=== PATIENT | female | born 1965 | race Caucasian/White ===

== ENCOUNTER 2016-10-25 18:40 | Observation (INO) ==
--- NOTE | 2016-10-25 18:57 | Emergency Department Note ---
Disposition Clinical Impression: Hyperglycemia Syncope Qualifiers: Syncope type: unspecified Qualified Code(s): R55 - Syncope and collapse Disposition: Admitted As Inpatient Referrals: Ramesh Graham DO [Primary Care Provider] - Forms: ED Satisfaction Letter Time of Disposition: 20:18 Syncope HPI - General Chief Complaint: ED Syncope Stated Complaint: syncopal episodes Time Seen by Provider: 10/25/16 18:51 Source: patient Mode of arrival: ambulatory Limitations: no limitations Nursing Notes Reviewed: Yes Vital Signs Reviewed: Yes - History of Present Illness HPI Narrative: 51-year-old with past medical history of coronary artery disease had bypass surgery states she's been having trouble with syncope. She is actually scheduled for a loop recorder by Dr. Sparks on the . She states that she cannot wait that long she is getting worse and she feels that that she is going to have a bad if she doesn't get it sooner to determine what is going on. 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 Duration: second(s) Prodromal Symptoms: none Witnessed: yes - by bystander Context: at rest Injuries Sustained Associated with Event: none History: previous syncopal episode - Related Data Home Medications Medication Instructions Recorded Confirmed Aspirin Enteric Coated [Aspirin EC] 325 mg PO DAILY 05/16/15 09/27/16 Gabapentin [Neurontin] 900 mg PO TID 05/16/15 09/27/16 Pantoprazole Sodium 40 mg PO DAILY 05/16/15 09/27/16 Ropinirole HCl [Requip] 3 mg PO BID 05/16/15 09/27/16 Tolterodine LA (24 HR) [Detrol LA] 4 mg PO DAILY 05/16/15 09/27/16 Famotidine [Pepcid] 20 mg PO QDPC PRN 02/28/16 09/27/16 Multivitamin [Multi-Day Vitamins] 1 tab PO DAILY 03/24/16 09/27/16 [place]-3/Dha/Epa/Fish Oil [Fish Oil 1,000 mg PO DAILY 03/24/16 09/27/16 1,000 mg Softgel] SUMAtriptan Succinate [Imitrex] 100 mg PO DAILY PRN 03/24/16 09/27/16 Sertraline [Zoloft] 100 mg PO DAILY 07/09/16 01/12/17 CarBAMazepine [Tegretol Xr] 1 tab PO DAILY 06/23/16 09/27/16 Previous Rx's Medication Instructions Recorded Albuterol Sulfate [Proair Hfa] 2 puff IH Q4H PRN #1 hfa.aer.ad 03/25/16 Atenolol 100 mg PO DAILY #30 tablet 03/25/16 CarBAMazepine [Tegretol] 200 mg PO BID #60 tablet 03/25/16 Clopidogrel [Plavix] 75 mg PO DAILY #30 tablet 03/25/16 Cyclobenzaprine [Flexeril] 10 mg PO TID PRN #0 tablet 03/25/16 Insulin ASPART [NovoLOG] 5 - 30 units SQ TIDWM #3 mls 03/25/16 Insulin DETEMIR [Levemir Flextouch] 50 unit SQ HS #3 mls 03/25/16 Isosorbide MONOnitrate (24 HR) 60 mg PO DAILY #30 tab.er.24h 03/25/16 [Imdur] LORazepam [Ativan] 1 mg PO TID PRN #0 tablet 03/25/16 Lancets/Blood Glucose Strips [Fora [facility] combo..pkg 03/25/16 [id number] Strp-Lnct] Lovastatin 40 mg PO HS #30 tablet 03/25/16 Syringe and Needle,Insulin,1Ml 1 each ACHS #100 disp.syrin 03/25/16 [Insulin Syringe] Nabumetone [Relafen] 500 mg PO BID PRN #20 tablet 06/23/16 Ciprofloxacin [Cipro] 500 mg PO BID #20 tablet 09/27/16 Clindamycin HCl [Cleocin HCl] 150 mg PO QID #40 capsule 09/27/16 Cephalexin [Keflex] 750 mg PO BID #20 capsule 09/30/16 Fluconazole [Diflucan] 150 mg PO DAILY #7 tab 09/30/16 HYDROcodone/Acet 5/325 mg [[place] 1 tab PO Q6H PRN #10 tab 09/30/16 5-325 mg] Allergies Allergy/AdvReac Type Severity Reaction Status Date / Time codeine Allergy See Verified 09/27/16 18:39 Comments ibuprofen Allergy See Verified 09/27/16 18:39 Comments meperidine Allergy See Verified 09/27/16 18:39 Comments promethazine Allergy Blister Verified 09/27/16 18:39 tramadol Allergy See Verified 09/27/16 18:39 Comments Constitutional: Denies: fever, chills, weakness, weight change Eyes: Denies: eye pain, eye discharge, vision change ENT ED: Denies: ear pain, throat pain, dental pain, hearing loss, epistaxis, congestion, dysphagia Cardiovascular: Reports: syncope. Denies: chest pain, palpitations, dyspnea on exertion, edema Respiratory: Denies: cough, dyspnea, wheezes, hemoptysis, stridor Gastrointestinal: Denies: abdominal pain, nausea, vomiting, diarrhea, constipation, hematemesis, melena, hematochezia Genitourinary: Denies: dysuria, frequency, hematuria, discharge Musculoskeletal: Denies: back pain, neck pain, arthralgia, myalgia Integumentary: Denies: rash, abrasion, lesions Neurological: Denies: headache, weakness, numbness, paresthesias, confusion, abnormal gait, vertigo Psychiatric: Denies: anxiety, depression, suicidal thoughts, homicidal thoughts , auditory hallucinations, visual hallucinations Endocrine: Denies: fatigue Hematological/Lymphatic: Denies: easy bleeding, easy bruising Allergic/Immunologic: Denies: facial swelling, urticaria Past Medical History - Past Medical History Medical history: Reports: COPD, coronary artery disease, CVA, diabetes, fibromyalgia, GERD, hyperlipidemia, hypertension, myocardial infarction, seizures Surgical history: Reports: angioplasty/stent, cholecystectomy, coronary bypass ( CABG), orthopedic, other (Left shoulder arthroscopy, left knee surgery) Psychiatric history: Reports: anxiety, bipolar, depression [employer] history: Reports: bilateral tubal ligation - Social History Smoking Status: Never smoker Smokeless Tobacco Status: No Alcohol use: Reports: rarely Drug use: Reports: none Physical Exam - General Limitations: no limitations General appearance: alert - Head Head exam: atraumatic, normocephalic, normal inspection - Eye Eye exam: Present: normal appearance, PERRL, EOMI - ENT ENT exam: normal exam, normal oropharynx, mucous membranes moist - Neck Neck exam: Present: normal inspection, full ROM, trachea midline - Chest Chest inspection: Present: normal inspection, symmetric chest wall rise - Respiratory Respiratory exam: Present: normal lung sounds bilaterally - Cardiovascular Cardiovascular exam: Present: regular rate, normal rhythm, normal heart sounds - Abdominal Exam Abdominal exam: Present: soft, Non-Tender. Absent: tenderness, distention, guarding, rebound, rigidity - Extremities Exam Extremities exam: Present: normal inspection, full ROM. Absent: tenderness, pedal edema - Expanded Lower Extremity Exam Neurovascular/Tendon exam: Absent: motor deficit, sensory deficit, tendon deficit Gait: observed and normal - Back Exam Back exam: Present: normal inspection, full ROM. Absent: tenderness - Neurological Exam Neurological exam: Present: alert, oriented X3 - Psychiatric Psychiatric exam: Present: normal affect, normal mood - Skin Skin exam: Present: warm, dry, intact, normal color Course - Reevaluation(s) Reevaluation #1: Blood pressure is 121/70. Time: 20:17 - Consultations Consultation #1: Discussed with Dr. Vicente, admit Time: 20:15 Vital Signs Temperature 97.6 F 10/25/16 18:43 Pulse Rate 106 10/25/16 18:43 Respiratory Rate 18 10/25/16 18:43 Blood Pressure 194/97 10/25/16 18:43 O2 Sat by Pulse Oximetry 96 10/25/16 18:43 Temperature 97.6 F 10/25/16 18:43 Pulse Rate 106 10/25/16 18:43 Respiratory Rate 18 10/25/16 18:43 Blood Pressure 194/97 10/25/16 18:43 O2 Sat by Pulse Oximetry 96 10/25/16 18:43 Oxygen Delivery Oxygen Delivery Room Air Syncope - Lab Data Result diagrams: 10/25/16 19:27 10/25/16 19:27 Lab Results 10/25/16 10/25/16 10/25/16 Range/Units 19:06 19:27 19:27 WBC 6.9 (4.3-11.1) K/mcL RBC 4.80 (3.82-4.97) M/mcL Hgb 13.6 (11.5-15.4) g/dL Hct 41.0 (35.3-44.9) % MCV 85.4 (83.0-100.0) fL MCH 28.3 (28.0-33.3) pg MCHC 33.2 (31.6-35.5) g/dL RDW 12.4 (11.5-14.5) % Plt Count 302 (140-400) K/mcL MPV 10.0 (9.4-12.4) fL Immature Gran % 0.6 (0-4) % Seg Neutrophils % 66.9 % Lymphocytes % 20.1 % Monocytes % 6.3 % Eosinophils % 5.5 % Basophils % 0.6 % Neutrophils # 4.6 (1.6-8.9) K/mcL Lymphocytes # 1.4 (0.6-4.6) K/mcL Monocytes # 0.4 (0.0-1.3) K/mcL Eosinophils # 0.4 (0.0-0.6) K/mcL Basophils # 0.0 (0.0-0.2) K/mcL PT 9.8 (9.4-12.1) Seconds INR 0.9 APTT 29.1 (26.0-36.0) Seconds Sodium (136-145) mEq/L Potassium (3.5-4.5) mEq/L Chloride (98-109) mEq/L Carbon Dioxide (19-29) mEq/L BUN (7-20) mg/dL Creatinine (0.57-1.11) mg/dL Est GFR ( Amer) (> 60) Est GFR (Non-Af Amer) (> 60) BUN/Creatinine Ratio (6-26) Glucose (70-99) mg/dL POC Glucose 526 H* (58-89) Calculated Osmolality (280-300) Calcium (8.6-10.8) mg/dL Troponin I (0-0.03) ng/mL Beta-Hydroxybutyric Acd (0.02-0.27) mmol/L 10/25/16 10/25/16 10/25/16 Range/Units 19:27 19:27 19:27 WBC (4.3-11.1) K/mcL RBC (3.82-4.97) M/mcL Hgb (11.5-15.4) g/dL Hct (35.3-44.9) % MCV (83.0-100.0) fL MCH (28.0-33.3) pg MCHC (31.6-35.5) g/dL RDW (11.5-14.5) % Plt Count (140-400) K/mcL MPV (9.4-12.4) fL Immature Gran % (0-4) % Seg Neutrophils % % Lymphocytes % % Monocytes % % Eosinophils % % Basophils % % Neutrophils # (1.6-8.9) K/mcL Lymphocytes # (0.6-4.6) K/mcL Monocytes # (0.0-1.3) K/mcL Eosinophils # (0.0-0.6) K/mcL Basophils # (0.0-0.2) K/mcL PT (9.4-12.1) Seconds INR APTT (26.0-36.0) Seconds Sodium 132 L (136-145) mEq/L Potassium 4.4 (3.5-4.5) mEq/L Chloride 95 L (98-109) mEq/L Carbon Dioxide 27 (19-29) mEq/L BUN 20 (7-20) mg/dL Creatinine 0.99 (0.57-1.11) mg/dL Est GFR ( Amer) > 60 (> 60) Est GFR (Non-Af Amer) 60 (> 60) BUN/Creatinine Ratio 20 (6-26) Glucose 596 H* (70-99) mg/dL POC Glucose (58-89) Calculated Osmolality 304 H (280-300) Calcium 8.9 (8.6-10.8) mg/dL Troponin I 0.00 (0-0.03) ng/mL Beta-Hydroxybutyric Acd 0.30 H (0.02-0.27) mmol/L - EKG Data EKG attestation: Yes I reviewed and interpreted this EKG. EKG shows normal: sinus rhythm Rate: normal Rhythm: NSR Interpretation: no acute changes
[2016-10-25 19:33] LABS: Basophils % 0.6 %; Eosinophils # 0.4 K/mcL (0.0-0.6); Eosinophils % 5.5 %; Hemoglobin 13.6 g/dL (11.5-15.4); Immature Granulocytes % 0.6 % (0-4); Lymphocytes # 1.4 K/mcL (0.6-4.6); Lymphocytes % 20.1 %; Mean Corpuscular HGB Conc 33.2 g/dL (31.6-35.5); Mean Corpuscular Hemoglobin 28.3 pg (28.0-33.3); Mean Corpuscular Volume 85.4 fL (83.0-100.0); Monocytes # 0.4 K/mcL (0.0-1.3); Monocytes % 6.3 %; Neutrophils # 4.6 K/mcL (1.6-8.9); Platelet Count 302 K/mcL (140-400); Red Cell Distribution Width 12.4 % (11.5-14.5); Segmented Neutrophils % 66.9 %
[2016-10-25 19:41] LABS: INR 0.9; Prothrombin Time 9.8 Seconds (9.4-12.1)
[2016-10-25 19:43] LABS: Activated Partial Thrombo Time 29.1 Seconds (26.0-36.0)
[2016-10-25 19:48] LABS: BUN/Creatinine Ratio 20 (6-26); Blood Urea Nitrogen 20 mg/dL (7-20); Calcium 8.9 mg/dL (8.6-10.8); Carbon Dioxide 27 mEq/L (19-29); Chloride 95 mEq/L (98-109); Osmolality,Calculated 304 (280-300); Potassium 4.4 mEq/L (3.5-4.5); Sodium 132 mEq/L (136-145); eGFR For African Americans > 60 (> 60); eGFR For Non-African Americans 60 (> 60)
[2016-10-25 19:52] LABS: Glucose 596 mg/dL (70-99)
[2016-10-25] MEDS ORDERED: Insulin Human Regular 8 UNIT in 0.9 % Sodium Chloride 10 ML IV ONE (19:52)
[2016-10-25] MEDS ORDERED: 0.9 % Sodium Chloride 1,000 ML IVC ONE (19:52)
[2016-10-25] MEDS ORDERED: Naloxone 0.4 MG/ML INJ IVP PRN (20:48)
[2016-10-25] MEDS ORDERED: Insulin LISPRO 300 UNITS/3 ML VIAL SQ SCH (21:00)
[2016-10-25] MEDS ORDERED: Dextrose Gel 15 GM PO PRN ×2 (21:02)
[2016-10-25] MEDS ORDERED: D5% in Water 1,000 ML IV PRN (21:02)
[2016-10-25] MEDS ORDERED: *HR* Dextrose 50 % in Water (Syg) 50 ML SYRINGE IVP PRN (21:02)
[2016-10-25] MEDS ORDERED: Insulin DETEMIR 100 UNIT/ML X5UNITS SQ SCH (21:15)
--- NOTE | 2016-10-25 21:21 | Internal Med History&Physical ---
Date of Encounter: 10/25/16 Time of Encounter: 21:11 Assessment and Plan (1) Syncope Current visit: Yes Status: Acute Patient is reporting increasing frequency of syncope. She is supposed to have a loop recorder later this month. She has had multiple visits to the ED and work up over the last year including neck MRA 03/24/16 which showed no evidence of focal stenosis of carotid or vertebral arteries, Head MRA 03/24/16 which showed no focal stenosis in [place]. She had echocardiogram 12/25/15 which showed EF of 60% and normal LV size and function, Stress test 12/25/15: Normal perfusion and no evidence of ischemia. 48 hour EEG 10/10/16 which showed no seizures or epileptiform discharges. Work up in the ED today included EKG which showed normal sinus rhythm, troponin was negative at 0.0. Head CT was negative for any acute abnormality, CXR showed no cardiopulmonary disease. Orthostatic vital signs continuous telemetry monitor Consult to cardiology - will need to be called tomorrow. Qualifiers: Syncope type: unspecified Qualified Code(s): R55 - Syncope and collapse (2) Hyperglycemia Current visit: Yes Status: Acute blood sugar of 596. Patient admits she does not take some of her medications because she cannot afford them, including her insulin sometimes. 8u insulin given in ED Will give evening dose of 50u levemir (basal dose) plus evening correction dose IV fluids: 0.9NS at 100mL/hr Check blood sugars ACHS Diabetic, heart health diet (3) History of seizure Current visit: Yes Status: Chronic Continue home dose of tegretol. Recent 48hr EEG showed no seizures or epileptiform discharges. (4) Type 1 diabetes mellitus Current visit: No Status: Chronic Diabetic, heart healthy diet Check blood sugars ACHS Basal levemir 50u HS Nutritional dose of 25u TIDWM Sliding scale correction dose HS hypoglycemic protocol Qualifiers: Diabetes mellitus complication status: with circulatory complication Diabetes mellitus complication detail: with other circulatory complications Qualified Code(s): E10.59 - Type 1 diabetes mellitus with other circulatory complications (5) DVT prophylaxis Current visit: No Status: Acute Ambulate with assistance anti-embolic stockings Heparin 5,000u SQ TID Internal Medicine - H&P: HPI Chief complaint: syncope Admitted From: Emergency Dept Plans for Post Hospital Care: Home History of present illness: Ms. Quevedo is a 51 year old female with HTN, hyperlipidemia, type 2 diabetes, CAD s/p stent placement and 4-vessel CABG (2015), seizure disorder who presented to the ED today with reports of fainting episodes. She reports the episode have been happening more frequently. She describes them as sudden loss of consciousness, without warning, and she's fallen multiple times because of them. She has had some workup for these episodes, without any conclusion and she reports a loop recorder is planned for later this month, but she does not feel she can wait that long. She also reports occasional chest pain and left arm numbness. She denies any palpitations, nausea, vomiting, diarrhea. She admits she cannot afford some of her medication and so does not take all of it, she is not sure which ones she does not take. She has had multiple visits to the ED and work up over the last year including neck MRA 03/24/16 which showed no evidence of focal stenosis of carotid or vertebral arteries, Head MRA 03/24/16 which showed no focal stenosis in [place]. She had echocardiogram 12/24 which showed EF of 60% and normal LV size and function, Stress test 12/25/15 : Normal perfusion and no evidence of ischemia. 48 hour EEG 10/10/16 which showed no seizures or epileptiform discharges. Work up in the ED today included EKG which showed normal sinus rhythm, troponin was negative at 0.0. Head CT was negative for any acute abnormality, CXR showed no cardiopulmonary disease. Her blood sugar was noted to be elevated at 596, she was given insulin and fluids. On exam, she is alert and oriented x 3, in no acute distress. Heart has regular rate and rhythm, lungs are clear to auscultation bilaterally. She has equal strength bilaterally and no pronator drift. Past Med Surg Social Fam HX - Past Medical History Medical history: COPD, coronary artery disease, diabetes, fibromyalgia, GERD, hyperlipidemia, hypertension, myocardial infarction, seizures Psychiatric history: anxiety, bipolar, depression - Past Surgical History Surgical History: angioplasty/stent, cholecystectomy, coronary bypass (CABG), orthopedic, other (Left shoulder arthroscopy, left knee surgery) - Social History Smoking Status: Never smoker Smokeless Tobacco Status: No Alcohol use: rarely Drug use: none - Family History Mother Hx Family Cardiac Disorders: Yes (HTN) Hx Family Endocrine Disorder: Yes (DM I) Hx Family Neurologic Disorders: Yes (stroke) Father Hx Family Cardiac Disorders: No Hx Family Cancer: Yes (Lung) Maternal Grandmother Hx Family Cardiac Disorders: Yes (Enlarged heart) Hx Family Respiratory Disorders: Yes (COPD) Hx Family Cancer: No Hx Family GI Disorders: No Hx Family Endocrine Disorder: Yes (DM) Hx Family Neuromuscular Disorders: No Hx Family Neurologic Disorders: No Hx Family HEENT Disorders: No Hx Family Autoimmune Disorders: No Internal Medicine - H&P: Meds Gabapentin [Neurontin] 900 mg PO TID 05/16/15 [History] Tolterodine LA (24 HR) [Detrol LA] 4 mg PO DAILY 05/16/15 [History] Sertraline [Zoloft] 100 mg PO BID 03/24/16 [History] Albuterol Sulfate [Proair Hfa] 2 puff IH Q4H PRN #1 hfa.aer.ad 03/25/16 [Rx] CarBAMazepine [Tegretol] 200 mg PO BID #60 tablet 03/25/16 [Rx] Clopidogrel [Plavix] 75 mg PO DAILY #30 tablet 03/25/16 [Rx] Insulin DETEMIR [Levemir Flextouch] 50 unit SQ HS #3 mls 03/25/16 [Rx] Isosorbide MONOnitrate (24 HR) [Imdur] 60 mg PO DAILY #30 tab.er.24h 03/25/16 [ Rx] Atenolol [Tenormin] 25 mg PO BID 10/25/16 [History] Insulin ASPART [NovoLOG] 25 units SQ TIDWM 10/25/16 [History] Mirtazapine [Mirtazapine] 15 mg PO HS 10/25/16 [History] Nitroglycerin [Nitrostat] 0.4 mg SL Q5M PRN 10/25/16 [History] Rizatriptan Benzoate [Rizatriptan] 10 mg PO DAILY PRN 10/25/16 [History] Allergies codeine Allergy (Verified 09/27/16 18:39) See Comments ibuprofen Allergy (Verified 09/27/16 18:39) See Comments meperidine Allergy (Verified 09/27/16 18:39) See Comments promethazine Allergy (Verified 09/27/16 18:39) Blister tramadol Allergy (Verified 09/27/16 18:39) See Comments All Systems PM: A 10-system review of systems was performed and is negative for pertinent findings except as documented above in the HPI. - Constitutional Constitutional: falls, no chills, no fever(s), no night sweats - EENT Eyes: no change in vision, no discharge, no pain, no photophobia Ears: no ear discharge, no ear pain, no tinnitus Nose, mouth and throat: no dysphagia, no nasal discharge, no neck pain, no sore throat - Cardiovascular Cardiovascular ROS IM: chest pain, dyspnea, syncope, no diaphoresis, no lightheadedness, no palpitations - Respiratory Respiratory: dyspnea, dyspnea on exertion, no cough, no wheezing, no excessive phlegm production - Gastrointestinal Gastrointestinal: no abdominal pain, no diarrhea, no hematemesis, no hematochezia, no melena, no nausea, no vomiting - Genitourinary Genitourinary: no change in urinary stream, no dysuria, no flank pain, no hematuria - Musculoskeletal Musculoskeletal ROS IM: tingling (occasional left arm), no numbness - Integumentary Integumentary IM: no rash, no unusual bruising - Neurological Neurological ROS: tingling (occasional left arm), no confusion, no convulsions, no focal weakness, no numbness, no tremor(s) - Hematologic/Lymphatic Hematologic/Lymphatic: no easy bruising - Constitutional Vitals: Temp Pulse Resp BP Pulse Ox 97.6 F 96 18 162/91 97 10/25/16 18:43 10/25/16 20:17 10/25/16 20:55 10/25/16 20:55 10/25/16 20:17 General appearance: Present: A&O X 3, no acute distress - Head Head exam: Present: atraumatic, normocephalic - Eye Eye exam: Present: PERRL, conjuntiva pink, sclera anicteric Pupils: Present: PERRL - Neck Neck exam general surgery: Present: supple, trachea midline. Absent: lymphadenopathy - Respiratory Respiratory exam: Present: CTAB. Absent: accessory muscle use, rales, rhonchi, wheezes - Cardiovascular Cardiovascular exam: Present: RRR, +S1, +S2. Absent: diastolic murmur, gallop, rubs, systolic murmur - GI/Abdominal GI/Abdominal exam: Present: normal bowel sounds, soft, no peritoneal signs. Absent: distended, tenderness - Extremities Exam Extremities exam: Present: warm, radial pulses palpable and symetrical. Absent : calf tenderness, cyanotic, pedal edema - Neurological Exam Neurological exam: Present: CN II-XII intact, oriented X3, no focal deficits. Absent: pronater drift, facial droop, speech deficit - Skin Skin exam: Present: dry, intact Internal Med - H&P Results - Labs CBC & Chem 7: 10/25/16 19:27 10/25/16 19:27
[2016-10-25] MEDS ORDERED: Nitroglycerin 0.4 MG TAB.SUBL SL PRN (21:41)
[2016-10-25] MEDS ORDERED: 0.9 % Sodium Chloride 500 ML IVC ONE (22:26)
[2016-10-25] MEDS ORDERED: 0.9 % Sodium Chloride 1,000 ML IVC SCH (22:30)
[2016-10-25] MEDS: carBAMazepine 200 MG TABLET PO SCH (22:44)
[2016-10-25] MEDS: *HR* Heparin 5,000 UNIT/ML VIAL SQ SCH (22:45)
[2016-10-25] MEDS: Gabapentin 300 MG CAPSULE PO SCH (22:45)
[2016-10-25] MEDS ORDERED: Mirtazapine 15 MG TABLET PO SCH (23:10)
[2016-10-26 01:20] LABS: Basophils % 0.6 %; Eosinophils # 0.5 K/mcL (0.0-0.6); Eosinophils % 7.2 %; Hematocrit 37.1 % (35.3-44.9); Hemoglobin 12.3 g/dL (11.5-15.4); Immature Granulocytes % 0.4 % (0-4); Lymphocytes % 27.1 %; Mean Corpuscular HGB Conc 33.2 g/dL (31.6-35.5); Mean Corpuscular Hemoglobin 28.3 pg (28.0-33.3); Mean Corpuscular Volume 85.5 fL (83.0-100.0); Mean Platelet Volume 9.9 fL (9.4-12.4); Monocytes # 0.6 K/mcL (0.0-1.3); Monocytes % 8.7 %; Neutrophils # 4.1 K/mcL (1.6-8.9); Platelet Count 301 K/mcL (140-400); Red Blood Count 4.34 M/mcL (3.82-4.97); Red Cell Distribution Width 12.5 % (11.5-14.5)
[2016-10-26 01:31] LABS: BUN/Creatinine Ratio 29 (6-26); Blood Urea Nitrogen 20 mg/dL (7-20); Calcium 8.1 mg/dL (8.6-10.8); Carbon Dioxide 26 mEq/L (19-29); Chloride 102 mEq/L (98-109); Glucose 305 mg/dL (70-99); Osmolality,Calculated 296 (280-300); Potassium 3.9 mEq/L (3.5-4.5); Sodium 136 mEq/L (136-145); eGFR For African Americans > 60 (> 60); eGFR For Non-African Americans > 60 (> 60)
--- NOTE | 2016-10-26 01:45 | Event Note ---
Date of Encounter: 10/26/16 Time of Encounter: 01:41 Patient seen and examined with nurse practitioner. Patient with a history of cabg has been having episodes of syncope over the past 2 months. These have been extensively investigated. She is scheduled to have a loop recorder by cardiology service. To dish out an episode of syncope. She was investigated before by 48-hour continuous EEG monitoring, holter monitors, brain imaging etc. and these were unrevealing. What admitted the patient for continuously telemetry monitoring and cardiology consultation. Patient also has hyperglycemic hyperosmolar states. Occasional noncompliance with insulin. Will hydrate the patient and resume her insulin. She is for full code
[2016-10-26] MEDS: *HR* Heparin 5,000 UNIT/ML VIAL SQ SCH (06:37)
[2016-10-26] MEDS ORDERED: Insulin LISPRO 300 UNITS/3 ML VIAL SQ SCH ×3 (07:30→08:00)
--- NOTE | 2016-10-26 08:58 | Cardiology Consult Note ---
<Olegario Juarez - Last Filed: 10/26/16 09:16> Date of Encounter: 10/26/16 Time of Encounter: 08:46 Assessment and Plan (1) Syncope Current Visit: Yes Status: Acute - reports of increased frequency of syncopal episode, negative workup to date, this may likely be due to intravascularly depletion in setting of HHS - ECHO 12/25/15 - EF 60% and normal LV size and function with normal wall motion - Nuclear stress test 12/25/15 - negativev for ischemia or infarct - Holter 09/30/15 - baseline rhythm is normal sinus with rare PAC/PVCs, no arrhythmias or pauses - 48 hour EEG 10/10/16 did not show seizures or epileptiform discharges - MRA head/neck 03/24/16 without acute abnormalities to arteries or [place] - scheduled loop recorder as outpatient with Dr. Alexy Sparks 11/06/16 however he is out until Saturday - will try to reschedule for earlier loop recorder, patient is in agreement with plan - continue quality assurance monitor final and paln for outpatient followup - EKG is NSR without acute ischemic changes, no LVH, brugada pattern, conduction delay, or delta wave - troponin negative - CT head normal Cardiology will sign off. Thank you for involving us in her care. Please call with further questions. Qualifiers: Syncope type: unspecified Qualified Code(s): R55 - Syncope and collapse (2) CAD (coronary artery disease) Current Visit: No Status: Acute - history of CAD with CABG 4V in 2014 - continue home meds ASA/plavix Qualifiers: Coronary Disease-Associated Artery/Lesion type: unspecified vessel or lesion type [place] vs. transplanted heart: [place] heart Associated angina: angina presence unspecified Qualified Code(s): I25.10 - Atherosclerotic heart disease of [place] coronary artery without angina pectoris (3) Hyperglycemia Current Visit: Yes Status: Acute - initial blood sugar of 596 - serum ketone 0.30 - primary team to manage Discussion w patient/family: The assessment and plan as outlined above was discussed with the patient and/or family members who expressed understanding and agreement. All questions were answered. Thank you for involving us in the care of your patient. Please call with any questions. History of Present Illness Consult date: 10/26/16 Requesting physician: Chiara Blanchard Consult reason: Syncope Chief complaint: Syncope, HHS History of present illness: Ms. Quevedo is a 51 year old female with past medical history of CAD s/p stent and CABG 4V (2014), hypertension, hyperlipidemia, IDDM, seizure disorder presented to the ED with reports of increased frequency of syncopal episodes. Reports last night at 1900 she was cooking dinner when she all of a sudden passed out. She is unsure how long. Reports symptoms of increased heart rate prior to the episode. Denies any injuries. Denies other prodromal symptoms including shortness of breath, lightheadedness, headache, chest pain. All of this in the setting of HHS. Her blood sugars up to 596 in the ED. She reports drinking a lot of juice at home but has not been taking care of herself due to increased stresses at home including recent in family. Reports up to 2-3 episodes daily. History of extensive workup with Dr. Sparks including a normal holter, stress, and echocardiogram. Scheduled for loop recorder 11/06. Also normal MRA head/neck and 24 hour EEG. Important CV studies: - ECHO 12/25/15 - EF 60% and normal LV size and function with normal wall motion - Nuclear stress test 12/25/15 - negativev for ischemia or infarct - Holter 09/30/15 - baseline rhythm is normal sinus with rare PAC/PVCs, no arrhythmias or pauses Past Med Surg Social Fam HX - Past Medical History Medical history: COPD, coronary artery disease, diabetes, fibromyalgia, GERD, hyperlipidemia, hypertension, myocardial infarction, seizures Psychiatric history: anxiety, bipolar, depression - Past Surgical History Surgical History: angioplasty/stent, cholecystectomy, coronary bypass (CABG), orthopedic, other - Social History Smoking Status: Never smoker Smokeless Tobacco Status: No Alcohol use: rarely Drug use: none - Family History Mother Hx Family Cardiac Disorders: Yes (HTN) Hx Family Endocrine Disorder: Yes (DM I) Hx Family Neurologic Disorders: Yes (stroke) Father Hx Family Cardiac Disorders: No Hx Family Cancer: Yes (Lung) Maternal Grandmother Hx Family Cardiac Disorders: Yes (Enlarged heart) Hx Family Respiratory Disorders: Yes (COPD) Hx Family Cancer: No Hx Family GI Disorders: No Hx Family Endocrine Disorder: Yes (DM) Hx Family Neuromuscular Disorders: No Hx Family Neurologic Disorders: No Hx Family HEENT Disorders: No Hx Family Autoimmune Disorders: No Medications and Allergies Gabapentin [Neurontin] 900 mg PO TID 05/16/15 [History] Tolterodine LA (24 HR) [Detrol LA] 4 mg PO DAILY 05/16/15 [History] Sertraline [Zoloft] 100 mg PO BID 03/24/16 [History] Albuterol Sulfate [Proair Hfa] 2 puff IH Q4H PRN #1 hfa.aer.ad 03/25/16 [Rx] CarBAMazepine [Tegretol] 200 mg PO BID #60 tablet 03/25/16 [Rx] Clopidogrel [Plavix] 75 mg PO DAILY #30 tablet 03/25/16 [Rx] Insulin DETEMIR [Levemir Flextouch] 50 unit SQ HS #3 mls 03/25/16 [Rx] Isosorbide MONOnitrate (24 HR) [Imdur] 60 mg PO DAILY #30 tab.er.24h 03/25/16 [ Rx] Atenolol [Tenormin] 25 mg PO BID 10/25/16 [History] Insulin ASPART [NovoLOG] 25 units SQ TIDWM 10/25/16 [History] Mirtazapine [Mirtazapine] 15 mg PO HS 10/25/16 [History] Nitroglycerin [Nitrostat] 0.4 mg SL Q5M PRN 10/25/16 [History] Rizatriptan Benzoate [Rizatriptan] 10 mg PO DAILY PRN 10/25/16 [History] Allergies codeine Allergy (Verified 09/27/16 18:39) See Comments ibuprofen Allergy (Verified 09/27/16 18:39) See Comments meperidine Allergy (Verified 09/27/16 18:39) See Comments promethazine Allergy (Verified 09/27/16 18:39) Blister tramadol Allergy (Verified 09/27/16 18:39) See Comments All Systems Review: A 10-system review of systems was performed and is negative for pertinent findings except as documented above in the HPI. - Constitutional Constitutional: no headache(s) - Cardiovascular Cardiovascular: dyspnea on exertion, rapid heart rate, syncope, no chest pain at rest, no chest pain with exertion, no dyspnea at rest, no irregular heart rhythm - Respiratory Respiratory: dyspnea, no cough Physical Examination Vital Signs, Last 4 Hours Temp Pulse Pulse Pulse Pulse Resp BP 10/26/16 07:18 79 80 82 10/26/16 07:06 97.7 F 79 15 103/68 BP BP BP Pulse Ox 10/26/16 07:18 103/68 117/77 122/79 10/26/16 07:06 95 General: Conversant, No Apparent Distress HEENT: Atraumatic, Normocephaly, Other (mucous membranes tacky) Neck: No JVD, Normal carotid pulses Cardiac: Reg Rate and Rhythm, Normal S1 and S2, No Murmur (with/without valsalva ) Lungs: Normal Breath Sounds, No Wheeze, Rales, Rhonchi Neuro: Alert and responsive, No focal deficits noted Abdomen: Soft, Non-Tender Skin: No rashes noted on visualized skin Musculoskeletal: No Chest Wall Tenderness, Other (scar from previous bypass) Extremities: No Clubbing, No Cyanosis, No Edema, Normal Pulses Results 10/26/16 00:51 10/26/16 00:51 Lab Results 10/26/16 10/26/16 10/26/16 00:51 00:51 00:51 WBC 7.3 Hgb 12.3 Hct 37.1 Plt Count 301 Sodium 136 Potassium 3.9 Chloride 102 Carbon Dioxide 26 BUN 20 Creatinine 0.69 Glucose 305 H Calcium 8.1 L Troponin I 0.00 10/26/16 07:51 WBC Hgb Hct Plt Count Sodium Potassium Chloride Carbon Dioxide BUN Creatinine Glucose Calcium Troponin I 0.00 - Imaging and Cardiology Chest Xray: report reviewed, image reviewed Stress Test: report reviewed Echo: report reviewed Holter: report reviewed - EKG Interpretation EKG results cardiology: personally reviewed, normal ECG, sinus rhythm, no diagnostic ischemia Consult Discharge Plan - Plan Referrals: Jasmyne Cochran, JOSE [Primary Care Provider] - 11/01/16 10:00 am <Dustin Caldwell - Last Filed: 10/26/16 09:40> Date of Encounter: 10/26/16 Assessment and Plan (1) Syncope Current Visit: Yes Status: Acute - reports of increased frequency of syncopal episode, negative workup to date, this may likely be due to intravascularly depletion in setting of HHS - ECHO 12/25/15 - EF 60% and normal LV size and function with normal wall motion - Nuclear stress test 12/25/15 - negativev for ischemia or infarct - Holter 09/30/15 - baseline rhythm is normal sinus with rare PAC/PVCs, no arrhythmias or pauses - 48 hour EEG 10/10/16 did not show seizures or epileptiform discharges - MRA head/neck 03/24/16 without acute abnormalities to arteries or [place] - scheduled loop recorder as outpatient with Dr. Alexy Sparks 11/06/16 however he is out until Saturday - will try to reschedule for earlier loop recorder, patient is in agreement with plan - continue quality assurance monitor final and paln for outpatient followup - EKG is NSR without acute ischemic changes, no LVH, brugada pattern, conduction delay, or delta wave - troponin negative - CT head normal Cardiology will sign off. Thank you for involving us in her care. Please call with further questions. Qualifiers: Syncope type: unspecified Qualified Code(s): R55 - Syncope and collapse Discussion w patient/family: The assessment and plan as outlined above was discussed with the patient and/or family members who expressed understanding and agreement. All questions were answered. Thank you for involving us in the care of your patient. Please call with any questions. History of Present Illness History of present illness: Ms. Quevedo is a 51 year old female All Systems Review: A 10-system review of systems was performed and is negative for pertinent findings except as documented above in the HPI. Physical Examination Vital Signs, Last 4 Hours Temp Pulse Pulse Pulse Pulse Resp BP 10/26/16 07:18 79 80 82 10/26/16 07:06 97.7 F 79 15 103/68 BP BP BP Pulse Ox 10/26/16 07:18 103/68 117/77 122/79 10/26/16 07:06 95 Results 10/26/16 00:51 10/26/16 00:51 Lab Results 10/26/16 10/26/16 10/26/16 00:51 00:51 00:51 WBC 7.3 Hgb 12.3 Hct 37.1 Plt Count 301 Sodium 136 Potassium 3.9 Chloride 102 Carbon Dioxide 26 BUN 20 Creatinine 0.69 Glucose 305 H Calcium 8.1 L Troponin I 0.00 10/26/16 07:51 WBC Hgb Hct Plt Count Sodium Potassium Chloride Carbon Dioxide BUN Creatinine Glucose Calcium Troponin I 0.00 Attestation: My signature below is to certify that this patient is under my care and that I, resident physician or nurse practitioner, or a physician's sourcing assistant working with me, has a [id number] encounter with this patient. Recurrent syncope with fairly extensive CV assessment not yet revealing a CV source of syncopal spells. History of syncope during most recent event - equivocal - but occurred in the setting of severe hyperglycemia and associated metabolic changes. Recs: Maintain on Tele while here Correct other issues - defer to Hospitalist. Implantable loop recorder has been scheduled - implanting physician not available today or this weekend. Will try to move procedure up - but will keep scheduled as outpt. Home when OK with others.
[2016-10-26] MEDS ORDERED: Isosorbide MONOnitrate (24 HR) 60 MG TAB.ER.24H PO SCH (09:00)
[2016-10-26] MEDS ORDERED: Tolterodine LA (24 HR) 4 MG CAP.ER.24H PO SCH (09:00)
[2016-10-26] MEDS: carBAMazepine 200 MG TABLET PO SCH (09:46)
[2016-10-26] MEDS: Gabapentin 300 MG CAPSULE PO SCH (09:47)
--- NOTE | 2016-10-26 10:51 | Discharge Summary ---
Date of Encounter: 10/26/16 Time of Encounter: 08:45 - Discharge Diagnosis (1) Syncope Priority: Primary Status: Chronic Comments: In speaking with the patient and in review of her chart, there is no further workup that can be offered from an inpatient perspective. In speaking with the patient, it is unclear whether these are true syncopal episodes. Patient stating she has 2-3 of these episodes per day. She states that she has never had incontinence, never suffered any injuries, never bit her tongue despite allegedly passing out 2-3 times a day every day. She states that her fiance lives with her and he is present most of the time but he has to leave for 2-3 hours every morning at which time family and friends come over. Patient stating that she needs to have somebody with her at all times. She states she does not like to be left alone. This is likely consistent with secondary gain. In the patient's description of her alleged syncopal episodes and in her alleged seizures, she is fully aware of her surroundings during the episodes and they are not consistent with syncopal episodes or seizure-like activity. Workup here negative other than uncontrolled diabetes. She will follow up with cardiology early next week for possible loop recorder. Patient stating she is scheduled to have this placed on the but does not want to wait until then. Qualifiers: Syncope type: unspecified Qualified Code(s): R55 - Syncope and collapse (2) History of seizure Priority: Secondary Status: Chronic Comments: See prior note for syncope (3) Personality disorder Priority: Primary Status: Suspected Comments: Suspected, recommend outpatient psychiatry evaluation (4) Diabetes mellitus Priority: Secondary Status: Chronic Comments: Uncontrolled and noncompliant. Most recent A1c 13.3%, recommend continued follow up outpatient. Patient not receptive to teaching. (5) DVT prophylaxis Priority: Primary Status: Acute Comments: Subcutaneous heparin while admitted (6) Major depressive disorder, recurrent severe without psychotic features Priority: Secondary Status: Chronic Comments: Patient denied any suicidal or homicidal ideations. She did continually states she does not ever want to be left home alone (7) Anxiety Priority: Secondary Status: Chronic (8) CAD (coronary artery disease) Priority: Secondary Status: Chronic Comments: Patient denied chest pain or shortness of breath above her normal throughout this admission, follow-up outpatient closely with cardiology early next week for possible loop recorder Qualifiers: Coronary Disease-Associated Artery/Lesion type: bypass graft [place] vs. transplanted heart: [place] heart Associated angina: without angina Qualified Code(s): I25.810 - Atherosclerosis of coronary artery bypass graft(s) without angina pectoris (9) HTN (hypertension) Priority: Secondary Status: Chronic Comments: Controlled, follow-up outpatient Qualifiers: Hypertension type: essential hypertension Qualified Code(s): I10 - Essential (primary) hypertension (10) Non compliance w medication regimen Priority: Secondary Status: Chronic (11) Morbid obesity with BMI of 40.0-44.9, adult Priority: Secondary Status: Chronic - Discharge Medications Home Medications: Gabapentin [Neurontin] 900 mg PO TID 05/16/15 [History] Tolterodine LA (24 HR) [Detrol LA] 4 mg PO DAILY 05/16/15 [History] Sertraline [Zoloft] 100 mg PO BID 03/24/16 [History] Albuterol Sulfate [Proair Hfa] 2 puff IH Q4H PRN #1 hfa.aer.ad 03/25/16 [Rx] CarBAMazepine [Tegretol] 200 mg PO BID #60 tablet 03/25/16 [Rx] Clopidogrel [Plavix] 75 mg PO DAILY #30 tablet 03/25/16 [Rx] Insulin DETEMIR [Levemir Flextouch] 50 unit SQ HS #3 mls 03/25/16 [Rx] Isosorbide MONOnitrate (24 HR) [Imdur] 60 mg PO DAILY #30 tab.er.24h 03/25/16 [ Rx] Atenolol [Tenormin] 25 mg PO BID 10/25/16 [History] Insulin ASPART [NovoLOG] 25 units SQ TIDWM 10/25/16 [History] Mirtazapine 15 mg PO HS 10/25/16 [History] Nitroglycerin [Nitrostat] 0.4 mg SL Q5M PRN 10/25/16 [History] Rizatriptan Benzoate [Rizatriptan] 10 mg PO DAILY PRN 10/25/16 [History] Allergies/Adverse Reactions: Allergies codeine Allergy (Verified 09/27/16 18:39) See Comments ibuprofen Allergy (Verified 09/27/16 18:39) See Comments meperidine Allergy (Verified 09/27/16 18:39) See Comments promethazine Allergy (Verified 09/27/16 18:39) Blister tramadol Allergy (Verified 09/27/16 18:39) See Comments Date of admission: 10/25/16 20:38 Primary care physician: Jasmyne Cochran CNP Consults: 10/25/16 21:08 Consult to Cardiology [CONS] Routine Comment: Consulting Provider: Card[facility] [place] Reason for Consult: 51 yo with increasing syncopal episodes, history of CAD, CABG 2015, seizure disorder. Has already had some work up, Loop recorder was planned for later this month. Call Completed: Yes Discharging clinician: Mayda Ramirez Anticipated date of discharge: 10/26/16 (followup early next week with cardiology) - Patient Status Disposition: Home, Self-Care Condition: Fair Functional capacity at discharge: independent ambulation Overall status at discharge: patient is back to baseline - Discharge Instructions Follow Up With: Jasmyne Cochran CNP [Primary Care Provider] - 11/01/16 10:00 am Alexy Sparks MD [Partnered Physician] - Additional Instructions: Follow-up with primary care provider as scheduled, follow-up with cardiology early next week - Diet and Activity Activity: increase activity as tolerated Diet: diabetic diet, low fat, low cholesterol, low salt diet Hospital course: Ms. Quevedo is a 51 year old female with extensive past medical history including hypertension, hyperlipidemia, uncontrolled type 2 diabetes, CAD status post stent and CABG 4, seizure disorder, morbid obesity, noncompliance. Patient presented to the emergency department chief complaint of syncope. Patient states that she has sudden loss of consciousness without warning and is associated with multiple falls as a result of these loss of consciousness episodes. Patient has had several extensive workups for these episodes without any conclusive etiology is noted. The only workup yet to be performed is a loop recorder per cardiology that is planned for later this month however the patient stated she did not feel as if she could wait that long which prompted her presentation to the emergency department. Patient also endorsed intermittent chest pain and left arm numbness. She denied palpitations, nausea , vomiting, diarrhea. Patient stating she cannot afford some of her medications and does not routinely take all of her medications but she is unable to answer which medication she does not does not take. She has a lengthy history of noncompliance. She has presented to the emergency department several times for the same complaint. On 03/24/16, she had a head and neck MRI that were negative for acute processes. She had an echocardiogram on which revealed an ejection fraction of 60% and was otherwise unremarkable. She also had a negative stress test on 12/25/15. She had an unremarkable 48 hour EEG on 10/10/16 which showed no seizures or epileptiform discharges. Workup in the emergency department unremarkable other than an initial glucose of 596. EKG with normal sinus rhythm and troponin negative. Head CT negative. Chest x-ray negative. She was admitted to the hospitalist service for further evaluation and management. Cardiology was brought on board but as Dr. Sparks is not available until early next week, they cleared her for outpatient follow-up with the notion that there are no further diagnostic testing that would be warranted from an inpatient basis. In speaking with the patient and in review of her chart, there is no further workup that can be offered from an inpatient perspective. In speaking with the patient, it is unclear whether these are true syncopal episodes. Patient stating she has 2-3 of these episodes of syncope per day. She states that she has never had incontinence, never suffered any injuries, never bit her tongue despite allegedly passing out 2-3 times a day every day. She states that her fiance lives with her and he is present most of the time but he has to leave for 2-3 hours every morning at which time family and friends come over. Patient stating that she needs to have somebody with her at all times. She states she does not like to be left alone. This is likely consistent with secondary gain. In the patient's description of her alleged syncopal episodes and in her alleged seizures, she is fully aware of her surroundings during the episodes and they are not consistent with syncopal episodes or seizure-like activity. Workup here negative other than uncontrolled diabetes. She will follow up with cardiology early next week for possible loop recorder. Patient stating she is scheduled to have this placed on the but does not want to wait until then. Patient states that she has several family members and friends that live close by that are constantly checking on her. She states that they do not let her cook or clean her house because they are afraid that she will have another episode. In this, patient is constantly surrounded by family and friends 24 hours a day 7 days a week who appeared to wait on her hand and foot. Strong suspicion for secondary gain however further workup to be continued on an outpatient basis. She was discharged home in stable condition with close outpatient follow-up recommended. Of note, she remained asymptomatic throughout this admission without any seizure-like activity or syncopal episodes. She denied lightheadedness or dizziness. She tolerated a regular diet. ITS Impressions Chest X-Ray 10/25/16 18:51 IMPRESSION: No active cardiopulmonary disease D/ / Mitchel Huston MD / Mitchel Huston MD Interpreting Provider: Mitchel Huston MD Head CT 10/25/16 18:52 IMPRESSION: No acute intracranial abnormality. D/ / Mahesh Dias MD / Mahesh Dias MD Interpreting Provider: Mahesh Dias MD - Time Spent with Patient Total time spent providing and/or coordinating discharge services: - Constitutional Vitals: Temp Pulse Resp BP Pulse Ox 97.7 F 79 15 103/68 95 10/26/16 07:06 10/26/16 07:18 10/26/16 07:06 10/26/16 07:18 10/26/16 07:06 General appearance: Present: A&O X 3, morbidly obese, pleasant, no acute distress, answers questions appropriately - Head Head exam: Present: atraumatic, normocephalic - Eye Eye exam: Present: PERRL, conjuntiva pink, sclera anicteric Pupils: Present: PERRL - Neck Neck exam general surgery: Present: supple, trachea midline. Absent: lymphadenopathy - Respiratory Respiratory exam: Present: CTAB. Absent: accessory muscle use, rales, respiratory distress, rhonchi, wheezes - Cardiovascular Cardiovascular exam: Present: RRR, +S1, +S2. Absent: diastolic murmur, gallop, rubs, systolic murmur - GI/Abdominal GI/Abdominal exam: Present: normal bowel sounds, soft, no peritoneal signs. Absent: distended, tenderness - Extremities Exam Extremities exam: Present: warm, radial pulses palpable and symetrical. Absent : calf tenderness, cyanotic, pedal edema - Neurological Exam Neurological exam: Present: alert, CN II-XII intact, oriented X3, no focal deficits, strengths equal and symetr throughout. Absent: pronater drift, facial droop, speech deficit - Skin Skin exam: Present: dry, intact, normal color, warm
[2016-10-26 11:17] VITALS: BP 106/67
--- NOTE | 2016-10-26 16:50 | Electrocardiograph Report ---
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
[2016-10-26] MEDS ORDERED: Mirtazapine 15 MG TABLET PO SCH (21:00)
== END 2016-10-26 11:45 | disposition home or self-care (01) ==
LOC: 3BNU 18:40 → EMEROO 18:40 → 3BNU 20:55
PROVIDERS: ADMIT Hospitalist; ATTEND Nurse Practitioner Family

== ENCOUNTER 2017-02-15 20:41 | Observation (INO) ==
[2017-02-15] MEDS ORDERED: NON-FORMULARY MEDICATION 1 EACH EACH (Insulin Detemir [Levemir Flextouch] 50 UNIT) SQ SCH (23:45)
--- NOTE | 2017-02-15 23:51 | Internal Med History&Physical ---
Date of Encounter: 02/15/17 Time of Encounter: 23:50 Assessment and Plan (1) Chest pain, rule out acute myocardial infarction Current visit: Yes Status: Acute Patient's chest pain is atypical. However patient has multiple risk factors including prior WA/CABG, DM. We will monitor her on telemetry and trend troponins. Patient was recently admitted to [facility] in November 2016. I have requested for the records. If there was no stress test or cardiac catheterization during that period, we will proceed with a stress test here during this admission. (2) CAD (coronary artery disease) Current visit: Yes Status: Chronic Continue current home medications. Qualifiers: Coronary Disease-Associated Artery/Lesion type: [place] artery [place] vs. transplanted heart: [place] heart Associated angina: angina presence unspecified Qualified Code(s): I25.10 - Atherosclerotic heart disease of [place] coronary artery without angina pectoris (3) Seizure disorder Current visit: Yes Status: Chronic Seizure precautions, continue her home medications including carbamazepine and gabapentin (4) Diabetes mellitus Current visit: Yes Status: Chronic Her A1C was about 13% last year. Will recheck A1C. continue levemir. 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 Will request medical records from [facility] for recent echocardiogram - if not available, will obtain one during this admission. Qualifiers: Congestive heart failure type: unspecified congestive heart failure type Congestive heart failure chronicity: unspecified congestive heart failure chronicity Qualified Code(s): I50.9 - Heart failure, unspecified Internal Medicine - H&P: HPI Chief complaint: chest pain Admitted From: Emergency Dept Plans for Post Hospital Care: Home History of present illness: Ms. Quevedo is a 51 year old female With h/o DM on insulin, CAD s/p coronary stems and CABG, COPD, hypertension, hyperlipidemia, seizure disorder, CVA with speech and memory problems. She had chest pain with troponin of 0.14 on 2016 and was transferred to [facility], from [facility] ( records requested from [facility]). Pt reports that she had an episode of seizure when she was sitting in the car (passenger seat) and noticed pain all over after the episode. She developed some left-sided chest pain for about 2 days, which preceded her seizure. She reports dull, constant pain, non- radiating. She was given nitroglycerin in the emergency department and her pain came down to 6/10, from 8/10. She was given Nitropaste which did not improve her chest pain. She report pain in the LUQ of the abdomen and right lumbar area, which is worse on deep breath. She reports shortness of breath, which is worsening and orthopnea. She reports dry cough. She denies fever or chills. She denies dysuria, hematuria or changes in bowel habits. She was evaluated in the emergency department at [facility] and admitted to the hospitalist service for further evaluation and management of chest pain. Past Med Surg Social Fam HX - Past Medical History Medical history: COPD, coronary artery disease, CVA, diabetes, fibromyalgia, GERD, hyperlipidemia, hypertension, myocardial infarction, seizures Psychiatric history: anxiety, bipolar, depression - Past Surgical History Surgical History: angioplasty/stent, cholecystectomy, coronary bypass (CABG), orthopedic, other - Social History Smoking Status: Never smoker Smokeless Tobacco Status: No Alcohol use: rarely Drug use: none - Family History Mother Hx Family Cardiac Disorders: Yes (HTN) Hx Family Endocrine Disorder: Yes (DM I) Hx Family Neurologic Disorders: Yes (stroke) Father Hx Family Cardiac Disorders: No Hx Family Cancer: Yes (Lung) Maternal Grandmother Hx Family Cardiac Disorders: Yes (Enlarged heart) Hx Family Respiratory Disorders: Yes (COPD) Hx Family Cancer: No Hx Family GI Disorders: No Hx Family Endocrine Disorder: Yes (DM) Hx Family Neuromuscular Disorders: No Hx Family Neurologic Disorders: No Hx Family HEENT Disorders: No Hx Family Autoimmune Disorders: No Internal Medicine - H&P: Meds Gabapentin [Neurontin] 300 mg PO TID 05/16/15 [History] Sertraline [Zoloft] 100 mg PO BID 03/24/16 [History] Albuterol Sulfate [Proair Hfa] 2 puff IH Q4H PRN #1 hfa.aer.ad 03/25/16 [Rx] Clopidogrel [Plavix] 75 mg PO DAILY #30 tablet 03/25/16 [Rx] Insulin DETEMIR [Levemir Flextouch] 50 unit SQ HS #3 mls 03/25/16 [Rx] Isosorbide MONOnitrate (24 HR) [Imdur] 60 mg PO DAILY #30 tab.er.24h 03/25/16 [ Rx] carBAMazepine [Tegretol] 200 mg PO BID #60 tablet 03/25/16 [Rx] Atenolol [Tenormin] 25 mg PO BID 10/25/16 [History] Insulin ASPART [NovoLOG] 25 units SQ TIDWM 10/25/16 [History] Mirtazapine 15 mg PO HS 10/25/16 [History] Nitroglycerin [Nitrostat] 0.4 mg SL Q5M PRN 10/25/16 [History] Aspirin/Calcium Carbonate/Mag [Aspirin Buffered 325 mg Tab] 325 mg PO DAILY [History] Rizatriptan Benzoate [Maxalt Conservation Specialist] 10 mg PO DAILY 11/06/16 [History] Ibuprofen [Motrin] 800 mg PO TID #15 tablet 11/07/16 [Rx] Tolterodine LA (24 HR) [Detrol LA] 4 mg PO DAILY 11/07/16 [History] hydroCHLOROthiazide [Hydrochlorothiazide] 50 mg PO DAILY #30 tablet 12/29/16 [Rx ] Furosemide [Lasix] 40 mg PO DAILY #30 tablet 01/28/17 [Rx] Allergies codeine Allergy (Verified 02/15/17 17:28) See Comments ibuprofen Allergy (Verified 02/15/17 17:28) See Comments meperidine Allergy (Verified 02/15/17 17:28) See Comments promethazine Allergy (Verified 02/15/17 17:28) Blister tramadol Allergy (Verified 02/15/17 17:28) See Comments All Systems PM: A 10-system review of systems was performed and is negative for pertinent findings except as documented above in the HPI. - Constitutional Vitals: Temp Pulse Resp BP Pulse Ox 98.2 F 95 16 144/79 95 02/15/17 23:01 02/15/17 23:01 02/15/17 23:01 02/15/17 23:01 02/15/17 23:01 Exam: General: In mild distress at the time of my evaluation HEENT: Oral mucosa is moist. No conjunctival palor or scleral icterus Neck: No obvious neck swellings Lungs: B/l basal crackles present Cardiac: Regular rate and rhythm. Questionable systolic murmur Abdomen: Soft mild LUQ tenderness present. Bowel sounds present Genitourinary: No lopez catheter Neurological: Alert and oriented. No gross localizing deficits of the extremities. Has slurred speech from prior CVA Psych: Not aggressive or agitated Extremities: B/L mild leg edema present Skin: No generalized rash Internal Med - H&P Results - Labs Labs: Sodium 132, potassium 3.4, bicarbonate 23, BUN 15, creatinine 1.06, glucose 501 , troponin 0.02, BNP 196, hemoglobin 13.5, hematocrit 38.1, WBC 4.3, platelets 216 - EKG Data -: EKG Interpreted by Myself EKG shows normal: sinus rhythm - EKG Data EKG comments: ST depression and T-wave inversion in leads 1 and aVL 02/16/17 00:57 - Impressions CXR reported stable portable study
[2017-02-15] MEDS ORDERED: Naloxone 0.4 MG/ML INJ IVP PRN (23:52)
[2017-02-15] MEDS ORDERED: Nitroglycerin 0.4 MG TAB.SUBL SL PRN (23:56)
[2017-02-15] MEDS ORDERED: Furosemide 20 MG/2 ML VIAL IVP ONE (23:59)
[2017-02-16] MEDS: Mirtazapine 15 MG TABLET PO SCH ×2 (00:44→21:16)
[2017-02-16] MEDS: carBAMazepine 200 MG TABLET PO SCH ×3 (00:44→21:16)
[2017-02-16] MEDS: Insulin DETEMIR 100 UNIT/ML X5UNITS SQ SCH ×2 (00:45→21:23)
[2017-02-16] MEDS: Gabapentin 300 MG CAPSULE PO SCH ×4 (00:45→21:16)
[2017-02-16 01:37] LABS: Hemoglobin A1C 12.3 %
[2017-02-16 01:39] LABS: Chol/HDL Ratio 7.1 (0-4.9); Cholesterol 192 mg/dL (< 200); HDL Cholesterol 27 mg/dL (40-59); LDL Cholesterol,Calculated 128 mg/dL (0-99); Magnesium 1.4 mg/dL (1.6-2.6); Triglycerides 186 mg/dL (< 150)
[2017-02-16 02:51] LABS: Alanine Aminotransferase 7 Units/L (0-55); Albumin 2.6 g/dL (3.5-5.0); Albumin/Globulin Ratio 0.8 (1.1-2.2); Alkaline Phosphatase 70 Units/L (38-126); Aspartate Amino Transferase 9 Units/L (5-34); BUN/Creatinine Ratio 17 (6-26); Bilirubin,Total 0.3 mg/dL (0.2-1.2); Blood Urea Nitrogen 17 mg/dL (7-20); Calcium 8.3 mg/dL (8.6-10.8); Carbon Dioxide 26 mEq/L (19-29); Chloride 101 mEq/L (98-109); Globulin 3.4 g/dL (2.4-3.5); Glucose 117 mg/dL (70-99); Osmolality,Calculated 287 (280-300); Potassium 3.3 mEq/L (3.5-4.5); Sodium 137 mEq/L (136-145); eGFR For African Americans > 60 (> 60); eGFR For Non-African Americans 58 (> 60)
[2017-02-16] MEDS: Aspirin 325 MG TABLET PO SCH (08:41)
[2017-02-16] MEDS: Tolterodine LA (24 HR) 4 MG CAP.ER.24H PO SCH (08:42)
[2017-02-16] MEDS: Furosemide 40 MG TABLET PO SCH (08:42)
[2017-02-16] MEDS ORDERED: MAXALT 10 MG PO PRN (09:00)
[2017-02-16] MEDS: Isosorbide MONOnitrate (24 HR) 60 MG TAB.ER.24H PO SCH (13:59)
[2017-02-16] MEDS: *HR* HYDROcodone/Acet 5/325 mg TABLET PO PRN ×2 (16:07→23:52)
--- NOTE | 2017-02-16 17:19 | Internal Med Progress Note ---
Date of Encounter: 02/16/17 Time of Encounter: 13:00 - Assessment and plan (1) Chest pain Current Visit: No Status: Acute Assessment and plan: Patient still complaining of chest pain and chest pressure. She has a lengthy cardiac history. Unfortunately, she just had an AL with a subsequent stroke or she was seen at [place]. She states that this was just last month. Unfortunately because it is the weekend, I have been unable to obtain [place]'s records. Patient is a poor historian. She states that after her stroke, that she is unable to retain memories and states that she forgets most things. She thinks that she had CABG couple years ago and that she has had multiple stents placed since that time. Will order a stress test to start tomorrow, she may need a 2 part stress given her BMI of 41. She continues to have chest pain, will treat accordingly. Patient has multiple pain medication allergies, but her OARRS report checks out okay. She also saw [facility]'s cardiology in October where it appears as if she had a loop recorder per Dr. Sparks. We will bring cardiology on board if stress test is abnormal. Nothing by mouth at midnight. EKGs reviewed with cardiology team, no acute changes. She has not had a stress test here at [facility] since December 2015. Chest x-ray at [place] from 02/15/17 impression: Stable portable study. Qualifiers: Chest pain type: unspecified Qualified Code(s): R07.9 - Chest pain, unspecified (2) DVT prophylaxis Current Visit: No Status: Acute Assessment and plan: Observation patient (3) Seizure disorder Current Visit: Yes Status: Chronic Assessment and plan: Most recent seizure was yesterday. Patient stating she has anywhere from one to 2 seizures per day typically but states she does not always sees every day. We will keep her on seizure precautions. Bed alarm is on. (4) Personality disorder Current Visit: No Status: Chronic (5) CAD (coronary artery disease) Current Visit: No Status: Chronic (6) HLD (hyperlipidemia) Current Visit: No Status: Chronic Assessment and plan: Lipid panel mildly abnormal, does not appear as if she is on a statin, will initiate. She has no documented allergies or intolerances to statins Qualifiers: Hyperlipidemia type: unspecified Qualified Code(s): E78.5 - Hyperlipidemia , unspecified (7) Diabetes mellitus Current Visit: Yes Status: Chronic Assessment and plan: Markedly uncontrolled with an A1c of 12.3%. Continue basal insulin sliding scale while admitted. (8) Morbid obesity with BMI of 40.0-44.9, adult Current Visit: Yes Status: Chronic (9) CHF (congestive heart failure) Current Visit: Yes Status: Chronic Assessment and plan: Patient's most recent echo was from last year and was limited. Preserved ejection fraction of 60%. Suspect chronic diastolic heart failure without acute exacerbation. She is on furosemide at home. (10) Hypokalemia Current Visit: Yes Status: Acute Assessment and plan: Mild and associated with hypomagnesemia, we will replete both and trend - Subjective Interval history: Patient seen and examined. On examination, patient sitting upright in bed. Patient is alert and oriented 3 and currently complains of chest pressure and pain across her chest. She states she is eating well now that she has been cleared to eat. She denies shortness of breath above her norm. - Constitutional Vitals: Temp Pulse Resp BP Pulse Ox 98.3 F 90 17 132/68 93 02/16/17 15:08 02/16/17 15:08 02/16/17 15:08 02/16/17 15:08 02/16/17 15:08 General appearance: Present: A&O X 3, pleasant, no acute distress, answers questions appropriately - Head Head exam: Present: atraumatic, normocephalic - Eye Eye exam: Present: PERRL, conjuntiva pink, sclera anicteric Pupils: Present: PERRL - Expanded ENT Exam Teeth exam: Present: edentulous - Neck Neck exam general surgery: Present: supple, trachea midline. Absent: lymphadenopathy - Respiratory Respiratory exam: Present: chest wall tenderness, decreased breath sounds. Absent: accessory muscle use, rales, respiratory distress, rhonchi, wheezes - Cardiovascular Cardiovascular exam: Present: RRR, +S1, +S2. Absent: diastolic murmur, gallop, rubs, systolic murmur - GI/Abdominal GI/Abdominal exam: Present: normal bowel sounds, soft, no peritoneal signs. Absent: distended, tenderness - Extremities Exam Extremities exam: Present: warm, radial pulses palpable and symetrical. Absent : calf tenderness, cyanotic, pedal edema - Neurological Exam Neurological exam: Present: alert, CN II-XII intact, oriented X3, no focal deficits, strengths equal and symetr throughout. Absent: pronater drift, facial droop, speech deficit - Skin Skin exam: Present: dry, intact, pallor, warm Internal Medicine: Result - Labs CBC & Chem 7: 02/16/17 01:06 Labs: BMP 02/16/17 01:06 Sodium 137 Potassium 3.3 L Chloride 101 Carbon Dioxide 26 BUN 17 Creatinine 1.01 Glucose 117 H Calcium 8.3 L Cardiac Enzymes 02/16/17 02/16/17 Range/Units 01:06 05:08 Troponin I 0.02 0.03 (0-0.03) ng/mL Liver Function 02/16/17 Range/Units 01:06 Total Bilirubin 0.3 (0.2-1.2) mg/dL AST 9 (5-34) Units/L ALT 7 (0-55) Units/L Alkaline Phosphatase 70 (38-126) Units/L Albumin 2.6 L (3.5-5.0) g/dL Consult Discharge Plan - Plan Referrals: Jasmyne Cochran, CHILD PSYCHIATRIST [Primary Care Provider] -
[2017-02-16] MEDS ORDERED: *HR* Dextrose 50 % in Water (Syg) 50 ML SYRINGE IVP PRN (17:21)
[2017-02-16] MEDS ORDERED: D5% in Water 1,000 ML IVC PRN (17:21)
[2017-02-16] MEDS ORDERED: Dextrose Gel 15 GM PO PRN ×2 (17:21)
[2017-02-16] MEDS ORDERED: Potassium Chloride Elixir 20 MEQ/15 ML UDC PO ONE (17:33)
[2017-02-16] MEDS: Magnesium Sulfate 1 GM in D5% in Water 100 ML IVPB ONE ×2 (18:43→21:18)
[2017-02-16] MEDS: Insulin LISPRO 300 UNITS/3 ML VIAL SQ SCH (21:22)
[2017-02-17 04:01] LABS: Calcium 8.6 mg/dL (8.6-10.8); Magnesium 2.1 mg/dL (1.6-2.6)
[2017-02-17 04:16] LABS: Potassium 4.8 mEq/L (3.5-4.5)
[2017-02-17] MEDS ORDERED: Regadenoson 0.4 MG/5 ML SYRINGE IVP ONE (07:33)
[2017-02-17] MEDS: Insulin LISPRO 300 UNITS/3 ML VIAL SQ SCH ×4 (08:22→21:59)
[2017-02-17] MEDS: Aspirin 325 MG TABLET PO SCH (08:22)
[2017-02-17] MEDS: carBAMazepine 200 MG TABLET PO SCH ×2 (08:22→22:01)
[2017-02-17] MEDS: Gabapentin 300 MG CAPSULE PO SCH ×3 (08:23→22:00)
[2017-02-17] MEDS: Tolterodine LA (24 HR) 4 MG CAP.ER.24H PO SCH (08:23)
[2017-02-17] MEDS ORDERED: 0.9 % Sodium Chloride 1,000 ML IVC SCH (09:45)
[2017-02-17] MEDS: Isosorbide MONOnitrate (24 HR) 60 MG TAB.ER.24H PO SCH (11:23)
[2017-02-17] MEDS: Furosemide 40 MG TABLET PO SCH (13:14)
--- NOTE | 2017-02-17 14:08 | Internal Med Progress Note ---
Date of Encounter: 02/17/17 Time of Encounter: 11:30 - Assessment and plan (1) Chest pain Current Visit: No Status: Acute Assessment and plan: Patient still complaining of chest pain and chest pressure. Troponin negative 3. 2 part stress test in progress. Unable to obtain records from [place] as it is the weekend. We will continue to control her symptoms and await second part of her stress test tomorrow. Patient has multiple pain medication allergies, but her OARRS report checks out okay. She also saw [facility]'s cardiology in October where it appears as if she had a loop recorder per Dr. Sparks. We will bring cardiology on board if stress test is abnormal. Nothing by mouth at midnight. EKGs reviewed with cardiology team, no acute changes. She has not had a stress test here at [facility] since December 2015. Chest x-ray at [place] from 02/15/17 impression: Stable portable study. Qualifiers: Chest pain type: unspecified Qualified Code(s): R07.9 - Chest pain, unspecified (2) DVT prophylaxis Current Visit: No Status: Acute Assessment and plan: Observation patient (3) Seizure disorder Current Visit: Yes Status: Chronic Assessment and plan: Most recent seizure was yesterday. Patient stating she has anywhere from one to 2 seizures per day typically but states she does not always sees every day. We will keep her on seizure precautions. Bed alarm is on. (4) Personality disorder Current Visit: No Status: Chronic (5) CAD (coronary artery disease) Current Visit: No Status: Chronic (6) HLD (hyperlipidemia) Current Visit: No Status: Chronic Assessment and plan: Lipid panel mildly abnormal, does not appear as if she is on a statin, will initiate. She has no documented allergies or intolerances to statins Qualifiers: Hyperlipidemia type: unspecified Qualified Code(s): E78.5 - Hyperlipidemia , unspecified (7) Diabetes mellitus Current Visit: Yes Status: Chronic Assessment and plan: Markedly uncontrolled with an A1c of 12.3%. Continue basal insulin sliding scale while admitted. (8) Morbid obesity with BMI of 40.0-44.9, adult Current Visit: Yes Status: Chronic (9) CHF (congestive heart failure) Current Visit: Yes Status: Chronic Assessment and plan: Patient's most recent echo was from last year and was limited. Preserved ejection fraction of 60%. Suspect chronic diastolic heart failure without acute exacerbation. Euvolemic on examination. She is on furosemide at home. (10) Hypokalemia Current Visit: Yes Status: Resolved (11) YEE (acute kidney injury) Current Visit: Yes Status: Acute Assessment and plan: Mild acute kidney injury overnight. Holding her home furosemide dosage with gentle IV fluids. Will recheck tomorrow. - Subjective Interval history: Patient seen and examined. On examination, patient sitting upright in bed watching tv and conversing with her . Patient is alert and oriented 3 and still complains of chest pressure and pain across her chest. She is also endorsing LLQ abdominal pain. She states she does not know when her last bowel movement was. She denies shortness of breath above her norm. - Constitutional Vitals: Temp Pulse Resp BP Pulse Ox 97.8 F 79 17 120/75 91 02/17/17 10:45 02/17/17 10:45 02/17/17 10:45 02/17/17 10:45 02/17/17 10:45 General appearance: Present: A&O X 3, morbidly obese, pleasant, no acute distress, answers questions appropriately - Head Head exam: Present: atraumatic, normocephalic - Eye Eye exam: Present: PERRL, conjuntiva pink, sclera anicteric Pupils: Present: PERRL - Neck Neck exam general surgery: Present: supple, trachea midline. Absent: lymphadenopathy - Respiratory Respiratory exam: Present: chest wall tenderness, decreased breath sounds. Absent: accessory muscle use, rales, respiratory distress, rhonchi, wheezes - Cardiovascular Cardiovascular exam: Present: RRR, +S1, +S2, systolic murmur. Absent: diastolic murmur, gallop, rubs - GI/Abdominal GI/Abdominal exam: Present: normal bowel sounds, soft, tenderness (LLQ), no peritoneal signs. Absent: distended - Extremities Exam Extremities exam: Present: warm, radial pulses palpable and symetrical. Absent : calf tenderness, cyanotic, pedal edema - Neurological Exam Neurological exam: Present: alert, CN II-XII intact, oriented X3, no focal deficits, strengths equal and symetr throughout. Absent: pronater drift, facial droop, speech deficit - Skin Skin exam: Present: dry, intact, pallor, warm Internal Medicine: Result - Labs CBC & Chem 7: 02/17/17 02:57 Labs: BMP 02/17/17 02:57 Sodium 133 L Potassium 4.8 H D Chloride 100 Carbon Dioxide 27 BUN 39 H D Creatinine 1.52 H D Glucose 397 H Calcium 8.6 Consult Discharge Plan - Plan Referrals: Jasmyne Cochran, TRAFFIC POLICE OFFICER [Primary Care Provider] -
--- NOTE | 2017-02-17 16:36 | Event Note ---
Date of Encounter: 02/17/17 Time of Encounter: 16:00 Patient was sitting in her bed and was slumped over on her bedside table that was across her lap. She was found by a CHIMNEY BUILDER in this state. Her states he had just stepped outside to have a cigarrette. The CHIMNEY BUILDER was not able to immediately arouse the patient, so a Rapid Response was called. Nursing staff arrived to found that the patient was intermittently opening her eyes to look around the room at staff, then she would close her eyes and slump over again as if she were non-responsive. Her stated this is what her "seizures" consist of. Upon my arrival to the room, the patient was sitting upright in bed and was alert and oriented x3. No injuries. She did not fall. No postictal state. As she was looking around the room while she was allegedly non -responsive, this is consistent with prior episodes and consistent with pseudoseizures. She states she has 1-3 per day but not everyday, but never falls out of her chair or injures herself. Her states that she will "grab onto stuff while she's sitting in her chair, then she'll have a seizure, then I'll yell and she'll stop." An EKG was performed which was unremarkable for acute processes. Glucose in the 220's. No focal neurological weaknesses present on examination. Patient is alert and oriented x3. Patient now stating her left shoulder hurts. Of note, over the past 2 days, every time she describes her chest pain it is in a different location. Awaiting second part of stress test tomorrow. Patient also complaining of left-sided abdominal pain. She states is going on for several months. She had an abdominal CT approximately 1 month ago on that revealed an unknown density to the right upper kidney. We will repeat imaging at this time.
[2017-02-17] MEDS: Insulin DETEMIR 100 UNIT/ML X5UNITS SQ SCH (22:00)
[2017-02-17] MEDS: Mirtazapine 15 MG TABLET PO SCH (22:01)
[2017-02-17] MEDS: *HR* HYDROcodone/Acet 5/325 mg TABLET PO PRN (22:14)
[2017-02-18 05:35] LABS: Calcium 8.7 mg/dL (8.6-10.8); Magnesium 2.2 mg/dL (1.6-2.6); Potassium 4.6 mEq/L (3.5-4.5)
--- NOTE | 2017-02-18 08:04 | Electrocardiograph Report ---
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
--- NOTE | 2017-02-18 08:07 | Electrocardiograph Report ---
[address] [place] [address] Test Date: 2017-02-16 Pat Name: Shayy Quevedo Department: 113 Room: 3B Gender: F Triage Nurse: PALAK : 1965 Requested By: Mayda Ramirez Order Number: [id number] Reading MD: Migule A Bell DO Measurements Intervals [place] Rate: 95 P: 50 [place]: 168 QRS: 3 QRSD: 102 T: 116 QT: 363 QTc: 415 Interpretive Statements SINUS RHYTHM POSSIBLE LEFT ATRIAL ENLARGEMENT INCOMPLETE RIGHT BUNDLE BRANCH BLOCK ST DEVIATION AND MODERATE T-WAVE ABNORMALITY, CONSIDER LATERAL ISCHEMIA Electronically Signed On 02-18-2017 8:05:34 EDT by Miguel A Bell DO
--- NOTE | 2017-02-18 08:32 | Nuclear Medicine Stress Report ---
Regadenoson Nuclear 2 day Name: Shayy Quevedo Date of Study: 02/17/2017 Date: 1965 Ht: 65.0 in Medical Record#: [id number] Age: 51 Wt: 252.0 lb Gender: Female Order #: [id number] Location: [facility] Room: [facility] Supervising Provider: Demarcus Bravo CNP Reading Physician: Desiree Zhang DO Ordering Physician: Mayda Ramirez CNP Primary Care Physician: Jasmyne Cochran CNP Stress Technologist: Jami Fierro, BEAN SPROUT LABORER,CPFT Student Services Coordinator: Elva Coleman Indications: Chest Pain, Coronary Artery Disease Impression: Perfusion imaging was negative for ischemia or infarct. Pharmacologic ECG was negative for ischemia at the level of heart rate achieved. Patient had 6/10 chest pain prior to start of study without change during testing. Gated EF = 50%. History: Hypertension Diabetes Hypercholesteremia Prior PCI History of Coronary Artery Bypass Surgery Stress Test Summary: Stress Test Type: Pharmacologic Regadenoson 0.4mg/5ml given IV Baseline Information: Initial Heart Rate: 73 Blood Pressure: 112/72 Stress Information: Test Terminated Due to (primary): As per protocol Maximum Blood Pressure: 114/62 Maximum Heart Rate: 84 Percent Maximum Heart Rate Achieved: 49 Double Product: [id number] Symptoms: Chest pain Nuclear Summary: SPECT myocardial perfusion imaging using Tc99m Sestamibi given intravenously was performed at rest and following cardiac stress testing. The resting images were obtained following initial dose of 35.7 mCi. Following stress an additional dose of 35.1 mCi was given at peak exercise or 30 seconds post regadenoson infusion. Medication Given: Time Medication Dose Units Route Findings: Stress Note * Resting ECG demonstrated normal sinus rhythm with nonspecific ST abnormalities. * Pharmacologic stress ECG is negative for ischemia at level of heart rate achieved. * No arrhythmias were noted during stress. * Patient had 6/10 chest pain prior to start of study without change during testing. Hemodynamic responses * Normal hemodynamic responses to pharmacologic stress. Study Quality * Study quality was fair. Gated EF % * Gated EF = 50%. Left Ventricle * The left ventricle is not dilated. TID * No evidence of transient ischemic dilatation. Lung Uptake * There is no evidence of increase lung uptake. NORMALS * Normal wall motion. PERFUSION * There is a small sized, mild intensity fixed perfusion defect involving the distal anteroseptum. Findings represent artifact. * Other segments demonstrate normal rest and stress perfusion. Updated by Desiree Zhang on 02/18/2017 8:25:49 AM electronically signed on 02/18/2017 8:27:50 AM with status of Final
[2017-02-18] MEDS: Aspirin 325 MG TABLET PO SCH (09:08)
[2017-02-18] MEDS: Insulin LISPRO 300 UNITS/3 ML VIAL SQ SCH ×2 (09:08→12:58)
[2017-02-18] MEDS: Tolterodine LA (24 HR) 4 MG CAP.ER.24H PO SCH (09:08)
[2017-02-18] MEDS: carBAMazepine 200 MG TABLET PO SCH (09:09)
[2017-02-18] MEDS: Gabapentin 300 MG CAPSULE PO SCH (09:09)
[2017-02-18] MEDS: Isosorbide MONOnitrate (24 HR) 60 MG TAB.ER.24H PO SCH (09:09)
[2017-02-18] MEDS ORDERED: Levofloxacin 500 MG/100 ML 500 MG/100 ML BAG IVPB SCH (10:00)
[2017-02-18 10:21] VITALS: BP 131/77
--- NOTE | 2017-02-18 12:58 | Discharge Summary ---
Date of Encounter: 02/18/17 Time of Encounter: 10:30 - Discharge Diagnosis (1) Chest pain Priority: Primary Status: Acute Comments: Troponin negative 3. 2 part stress test negative. ACS ruled out. Qualifiers: Chest pain type: unspecified Qualified Code(s): R07.9 - Chest pain, unspecified (2) DVT prophylaxis Priority: Primary Status: Acute Comments: Observation patient (3) Seizure disorder Priority: Secondary Status: Chronic Comments: Patient did have a witnessed episode while admitted. Episode was consistent with pseudoseizures. (4) Personality disorder Priority: Secondary Status: Chronic (5) CAD (coronary artery disease) Priority: Secondary Status: Chronic Qualifiers: Coronary Disease-Associated Artery/Lesion type: bypass graft [place] vs. transplanted heart: citizen [place] heart Associated angina: angina presence unspecified Qualified Code(s): I25.810 - Atherosclerosis of coronary artery bypass graft(s) without angina pectoris (6) HLD (hyperlipidemia) Priority: Secondary Status: Chronic Comments: Lipid panel mildly abnormal, does not appear as if she is on a statin, will initiate. She has no documented allergies or intolerances to statins Qualifiers: Hyperlipidemia type: unspecified Qualified Code(s): E78.5 - Hyperlipidemia , unspecified (7) Diabetes mellitus Priority: Secondary Status: Chronic Comments: Markedly uncontrolled with an A1c of 12.3%. Recommend continued follow-up outpatient. Qualifiers: Diabetes mellitus type: type 2 Diabetes mellitus complication status: with hyperglycemia Diabetes mellitus long term care pharmacist insulin use: with long term care pharmacist use Qualified Code(s): E11.65 - Type 2 diabetes mellitus with hyperglycemia; Z79.4 - alf (current) use of insulin (8) Morbid obesity with BMI of 40.0-44.9, adult Priority: Secondary Status: Chronic (9) CHF (congestive heart failure) Priority: Secondary Status: Chronic Comments: Patient's most recent echo was from last year and was limited. Preserved ejection fraction of 60%. Suspect chronic diastolic heart failure without acute exacerbation. Euvolemic on examination. She is on furosemide at home. Qualifiers: Congestive heart failure type: diastolic Congestive heart failure chronicity: chronic Qualified Code(s): I50.32 - Chronic diastolic (congestive ) heart failure (10) Hypokalemia Priority: Primary Status: Resolved (11) YEE (acute kidney injury) Priority: Primary Status: Acute Comments: Likely recent onset of chronic kidney disease stage III however only abnormal for just over a month or so no official diagnosis. Improved with IV fluids while admitted, follow-up outpatient. - Discharge Medications Prescriptions: Benzonatate [Tessalon] 200 mg PO TID PRN #15 capsule PRN Reason: Cough GuaiFENesin ER [Mucinex] 600 mg PO BID #10 tbbp.12hr Levofloxacin [Levaquin] 500 mg PO DAILY #9 tablet Rosuvastatin [Crestor] 20 mg PO HS #30 tablet Home Medications: Gabapentin [Neurontin] 900 mg PO TID 05/16/15 [History] Sertraline [Zoloft] 100 mg PO BID 03/24/16 [History] Albuterol Sulfate [Proair Hfa] 2 puff IH Q4H PRN #1 hfa.aer.ad 03/25/16 [Rx] Clopidogrel [Plavix] 75 mg PO DAILY #30 tablet 03/25/16 [Rx] Insulin DETEMIR [Levemir Flextouch] 50 unit SQ HS #3 mls 03/25/16 [Rx] Isosorbide MONOnitrate (24 HR) [Imdur] 60 mg PO DAILY #30 tab.er.24h 03/25/16 [ Rx] carBAMazepine [Tegretol] 200 mg PO BID #60 tablet 03/25/16 [Rx] Atenolol [Tenormin] 25 mg PO BID 10/25/16 [History] Insulin ASPART [NovoLOG] 25 units SQ TIDWM 10/25/16 [History] Mirtazapine 15 mg PO HS 10/25/16 [History] Nitroglycerin [Nitrostat] 0.4 mg SL Q5M PRN 10/25/16 [History] Aspirin/Calcium Carbonate/Mag [Aspirin Buffered 325 mg Tab] 325 mg PO DAILY [History] Rizatriptan Benzoate [Maxalt Wrecker Operator] 10 mg PO DAILY PRN 11/06/16 [History] Ibuprofen [Motrin] 800 mg PO TID #15 tablet 11/07/16 [Rx] Tolterodine LA (24 HR) [Detrol LA] 4 mg PO DAILY 11/07/16 [History] Furosemide [Lasix] 40 mg PO DAILY #30 tablet 01/28/17 [Rx] Lisinopril-HCTZ 10-12.5 [Prinzide 10-12.5] 1 tab PO DAILY 02/16/17 [History] Benzonatate [Tessalon] 200 mg PO TID PRN #15 capsule 02/18/17 [Rx] GuaiFENesin ER [Mucinex] 600 mg PO BID #10 tbbp.12hr 02/18/17 [Rx] Levofloxacin [Levaquin] 500 mg PO DAILY #9 tablet 02/18/17 [Rx] Rosuvastatin [Crestor] 20 mg PO HS #30 tablet 02/18/17 [Rx] Allergies/Adverse Reactions: Allergies meperidine Allergy (Verified 02/16/17 12:36) Blister promethazine Allergy (Verified 02/16/17 12:36) Blister acetaminophen [From Vicodin] Adverse Reaction (Verified 02/16/17 12:36) Gastrointestinal Upset codeine Adverse Reaction (Verified 02/16/17 12:36) Gastrointestinal Upset hydrocodone [From Vicodin] Adverse Reaction (Verified 02/16/17 12:36) Gastrointestinal Upset ibuprofen Adverse Reaction (Verified 02/16/17 12:36) Gastrointestinal Upset tramadol Adverse Reaction (Verified 02/16/17 12:36) Gastrointestinal Upset Procedures/tests Complete & Pending: Procedures Performed prior 72 hours Category Date Time Status CT abd pelvis wo no iv no oral [CT] Routine Cat Scan 02/17/17 16:36 Completed NM grace perf SPECT multi [NM] Routine Exams 02/16/17 17:23 Taken ECG 12 lead ECG [ECG] Routine Y 02/16/17 00:23 Completed ECG 12 lead ECG [ECG] Routine Y 02/16/17 09:14 Completed ECG 12 lead ECG [ECG] Routine Y 02/17/17 16:09 Completed SP pharm nuclear stress Routine Y 02/16/17 17:22 Completed Date of admission: 02/15/17 22:24 Primary care physician: Jasmyne Cochran CNP Discharging clinician: Mayda Ramirez Anticipated date of discharge: 02/18/17 - Patient Status Disposition: Home, Self-Care Condition: Fair Functional capacity at discharge: independent ambulation Overall status at discharge: patient is back to baseline - Discharge Instructions Follow Up With: Jasmyne Cochran CNP [Primary Care Provider] - Additional Instructions: Follow-up with primary care provider within one to 2 weeks - Diet and Activity Activity: increase activity as tolerated Diet: diabetic diet, low fat, low cholesterol, low salt diet Hospital course: Ms. Quevedo is a 51 year old female with past medical history of insulin- dependent diabetes, CAD status post stent and CABG, COPD, hypertension, hyperlipidemia, seizure disorder, prior CVA with speech and memory problems, morbid obesity. Patient presented to the emergency department chief complaint of left-sided chest pain 2 days. Patient stating she also had a seizure prior to the onset of her chest pain. She reports pain as dull, constant, and without radiation. She was given nitroglycerin in the emergency department which slightly brought her pain down. Her pain however was not improved with nitroglycerin paste. She also reported left upper quadrant abdominal pain and pain to her right lower back worsened with deep breathing. She endorses shortness of breath and orthopnea. She also reported a dry cough. She denied fever or chills. Chest x-ray from [facility] emergency department unremarkable. Patient was admitted to the hospitalist service for further evaluation and management. Patient had just been seen at [facility] for elevated troponins however the patient was seen over the weekend and these records were not able to be obtained. Troponins negative 3. A 2 day stress test was performed which was negative. While admitted, patient also complained of left-sided abdominal pain so abdominal CT was obtained which revealed an unchanged density lesion to her right renal area. Abdominal CT also revealed right middle lobe pneumonia. Patient was started on levofloxacin. Patient remained on room air throughout this admission. EKGs were abnormal and reviewed with cardiology team and did not display any acute changes. Acute coronary syndrome ruled out. She was treated for pneumonia. She did have seizure-like activity while admitted. She had an episode where she was allegedly unresponsive however she was still opening her eyes to look around and still making purposeful movements during her alleged unconscious episode. Highly consistent with pseudoseizures. No postictal state, no injuries. During her episode, an EKG was performed which was unremarkable, troponin was drawn and was negative. She had no focal neurological weaknesses present. No changes warranted to her regular home medications. She was hyperlipidemic and does not appear to be on a statin with no statin intolerance is documented she was started on low-dose statin. She was discharged home in stable condition with close outpatient follow-up recommended. ITS Impressions Chest x-ray at [facility] from 02/15/17 impression: Stable portable study. Abdomen/Pelvis CT 02/17/17 16:36 IMPRESSION: 1. New right middle lobe pneumonia. 2. Unchanged 2.2 cm x 1.3 cm mixed density lesion in the posteromedial right perirenal fascia. Considerations are unchanged, including liposarcoma, other lipomatous neoplasm, angiomyolipoma, or focal contusion or hematoma. Consider further evaluation with a contrast-enhanced MRI. D/ / Andrew Worthington MD / Andrew Worthington MD Interpreting Provider: Andrew Worthington MD [facility] nuclear 2 day impression: Perfusion imaging was negative for ischemia or infarct. Pharmacologic ECG was negative for ischemia at the level of heart rate achieved. Patient had 6/10 chest pain prior to start of study without change during testing. Gated ejection fraction was 50% - Time Spent with Patient Total time spent providing and/or coordinating discharge services: - Constitutional Vitals: Temp Pulse Resp BP Pulse Ox 97.9 F 73 16 131/77 94 02/18/17 10:20 02/18/17 10:20 02/18/17 10:20 02/18/17 10:20 02/18/17 10:20 General appearance: Present: A&O X 3, morbidly obese, pleasant, no acute distress, answers questions appropriately - Head Head exam: Present: atraumatic, normocephalic - Eye Eye exam: Present: PERRL, conjuntiva pink, sclera anicteric Pupils: Present: PERRL - Neck Neck exam general surgery: Present: supple, trachea midline. Absent: lymphadenopathy - Respiratory Respiratory exam: Present: decreased breath sounds. Absent: accessory muscle use, rales, respiratory distress, rhonchi, wheezes - Cardiovascular Cardiovascular exam: Present: RRR, +S1, +S2. Absent: diastolic murmur, gallop, rubs, systolic murmur - GI/Abdominal GI/Abdominal exam: Present: normal bowel sounds, soft, tenderness, no peritoneal signs. Absent: distended - Extremities Exam Extremities exam: Present: warm, radial pulses palpable and symetrical. Absent : calf tenderness, cyanotic, pedal edema - Neurological Exam Neurological exam: Present: alert, CN II-XII intact, oriented X3, no focal deficits, strengths equal and symetr throughout. Absent: pronater drift, facial droop, speech deficit - Skin Skin exam: Present: dry, intact, pallor, warm
== END 2017-02-18 15:11 | disposition home or self-care (01) ==
LOC: 3BNU
PROVIDERS: ADMIT Internal Medicine; ATTEND Nurse Practitioner Family